=== PATIENT | male | born 1965 | race Caucasian/White ===

== ENCOUNTER 2022-11-28 20:36 | Emergency (ER) | payer OTHER ==
[~2022-11-28] VITALS: Ht 182.9 cm; Wt 90.9 kg
[2022-11-28] MEDS ORDERED: ATOR1TAB21 PO (20:43)
[2022-11-29] MEDS ORDERED: PERCOCET 5MG/325MG TAB PO ONE (00:50)
[2022-11-29] MEDS ORDERED: OXYCODONE/APAP 5MG/325MG(HOME DOSE PACK) PO ONE (02:50)
[2022-11-29] MEDS ORDERED: PERC5TAB12 PO (02:56)
[2022-11-29 03:33] VITALS: BP 142/80; TEMP 98.1; O2SAT 99
== END 2022-11-29 03:35 | disposition home or self-care (01) ==
LOC: M ED 20:36
DX: S76.322A Laceration of muscle, fascia and tendon of the posterior muscle group at thigh level, left thigh, initial encounter (principal); E78.5 Hyperlipidemia, unspecified; Y93.17 Activity, water skiing and wake boarding; Z79.02 Long term (current) use of antithrombotics/antiplatelets; Z79.899 Other long term (current) drug therapy

== ENCOUNTER → 2024-02-21 | Outpatient (CLI) | payer OTHER ==
[~2024-02-21] MED LIST: ATOR1TAB21 PO; GASTROGRAFIN SOLUTION 30ML As Ordered ONE; ISOVUE-370 76% 100ML VIAL As Ordered ONE; PERC5TAB12 PO; TADA10TA
== END ==
LOC: M RAD 14:23
PROVIDERS: ATTEND Internal Medicine Hematology & Oncology
DX: I77.811 Abdominal aortic ectasia (principal); Z80.6 Family history of leukemia
CPT/HCPCS: 74177; Q9963; Q9967